=== PATIENT | female | born 1990 ===

== ENCOUNTER 2021-08-25 19:02 | Emergency (ER) | payer OTHER ==
[~2021-08-25] VITALS: Ht 157.5 cm; Wt 77.1 kg
[~2021-08-25 19:02] MED LIST: PRENATAL CAPLE1 EACH PO
== END 2021-08-25 23:32 | disposition home or self-care (01) ==
LOC: ER 19:02
DX: R10.2 Pelvic and perineal pain (principal); Z20.822 Contact with and (suspected) exposure to COVID-19